=== PATIENT | female | born 1970 | race Caucasian/White ===

== ENCOUNTER 2018-01-06 05:19 | Emergency (ER) | payer BC, OTHER ==
[~2018-01-06] VITALS: Ht 167.6 cm; Wt 83.9 kg
[2018-01-06 05:30] VITALS: BP 145/92
[2018-01-06 05:37] LABS: URINE BILIRUBIN NEGATIVE (Negative); URINE BLOOD 3+ (Negative); URINE CLARITY CLEAR; URINE COLOR YELLOW; URINE GLUCOSE-RANDOM* NEGATIVE (Negative); URINE KETONES NEGATIVE (Negative); URINE NITRITE-REFLEX NEGATIVE (Negative); URINE PROTEIN (DIPSTICK) 2+ (Negative); URINE SPECIFIC GRAVITY 1.025 (1.005-1.035); URINE UROBILINOGEN 0.2 E.U./dl (0.2-1.0)
[2018-01-06] MEDS ORDERED: BACTRIM DS TAB1 EACH PO (05:41)
[2018-01-06] MEDS ORDERED: PYRIDIUM200 MG PO (05:41)
[2018-01-06 05:48] LABS: URINE LEUKOCYTES-REFLEX 2+ (Negative)
[2018-01-06 06:06] LABS: CASTS None Seen /LPF (None Seen); MUCUS None Seen strn/LPF (None Seen); SQUAMOUS None Seen /LPF (0-3)
[2018-01-06 06:07] LABS: CRYSTALS None Seen /LPF (None Seen); URINE RBC >20 Many /HPF (0-2); URINE WBC-REFLEX >25 Many /HPF (0-5)
== END 2018-01-06 06:14 | disposition home or self-care (01) ==
LOC: ER 05:19
PROVIDERS: Emergency Medicine
DX: N39.0 Urinary tract infection, site not specified (principal); R31.9 Hematuria, unspecified; F17.210 Nicotine dependence, cigarettes, uncomplicated

== ENCOUNTER 2018-02-02 12:11 | Emergency (ER) | payer BC, OTHER ==
[~2018-02-02] VITALS: Ht 167.6 cm; Wt 83.9 kg
[~2018-02-02 12:11] MED LIST: BACTRIM DS TAB1 EACH PO; PYRIDIUM200 MG PO
[2018-02-02] MEDS ORDERED: PREDNISONE 20 M20 MG PO (12:50)
[2018-02-02] MEDS ORDERED: PROVENTIL HFA6.7 G1 INH (12:50)
[2018-02-02 13:07] VITALS: BP 138/89
== END 2018-02-02 13:19 | disposition home or self-care (01) ==
LOC: ER 12:11
DX: J98.01 Acute bronchospasm (principal); F17.210 Nicotine dependence, cigarettes, uncomplicated